=== PATIENT | female | born 1985 | race Caucasian/White ===

== ENCOUNTER 2021-07-14 11:27 | Outpatient (RCR) | payer OTHER, SELFPAY ==
[2021-07-14 12:25] VITALS: BP 110/75; PULSE 70
== END 2021-08-10 10:06 | disposition home or self-care (01) ==
LOC: ANHOBOP 11:27
PROVIDERS: PCP Family Medicine; Visit Provider Obstetrics & Gynecology
DX: O36.5930 Maternal care for other known or suspected poor fetal growth, third trimester, not applicable or unspecified (principal); Z3A.37 37 weeks gestation of pregnancy
CPT/HCPCS: 59025

== ENCOUNTER 2021-07-28 06:01 | Inpatient (IN) | payer OTHER, SELFPAY ==
[2021-07-28] VITALS (91 sets, daily range): BP systolic 98–130; BP diastolic 54–94; PULSE 57–105; RESP 16–18; TEMP 36.4–36.8; O2SAT 98–100; BMI 32.7
--- NOTE | 2021-07-28 06:01 | LDADM ---
This patient, Masha Manning, was admitted to Labor/Delivery/Recovery 107 on 07/28/21 at 06:01. Plans for labor, pain management and were discussed with patient. Patient/family oriented to hospital policies and general routines including ID bracelet, bed and alarms, visiting hours, pain management, procedures, bathroom and other care routines, personal items, smoking policy, room service/diet and guest tray routines, infant security routines, and visiting hours. Patient/Family are encouraged to report perceived risks to care and to ask questions if they do not understand what they are told or what they should do. See OBIX for further documentation.
[2021-07-28] MEDS: LACTATED RINGERS 1,000 ML 125 ML IV CONT ×2 (06:58→10:13)
[2021-07-28] MEDS: AMPICILLIN 2 GM/NS 100 ML 2 GM/100 ML BAG IVPB (06:58)
[2021-07-28] MEDS: OXYTOCIN 30 UNITS/NS 500 ML 30 UNITS/500 ML BAG IV CONT (06:58)
[2021-07-28 07:06] LABS: Basophils Percent Auto 0.4 % (0.2-1.2); Eosinophils Absolute Auto 0.1 K/mm3 (0-0.3); Eosinophils Percent Auto 0.9 % (0-4.4); Hematocrit 40.3 % (37.0-47.0); Hemoglobin 14.2 g/dL (12.0-15.0); Immature Granulocyte Absolute 0.07 K/mm3 (0.00-0.031); Immature Granulocyte Percent A 0.8 % (0-0.5); Lymphocytes Absolute Auto 1.66 K/mm3 (0.9-3.2); Lymphocytes Percent Auto 19.6 % (18.3-44.2); Mean Corpuscular HGB Conc 35.2 g/dl (32-36); Mean Corpuscular Hemoglobin 32.9 pg (26-34); Mean Corpuscular Volume 93.3 fl (80-100); Mean Platelet Volume 11.7 fl (7.4-10.4); Monocytes Absolute Auto 0.7 K/mm3 (0.1-0.6); Monocytes Percent Auto 7.8 % (2.6-8.5); Neutrophils Percent Auto 70.5 % (45.5-73.1); Platelet Count Result 212 k/mm3 (150-375); Red Blood Count 4.32 M/mm3 (4.2-5.4); White Blood Count 8.5 K/mm3 (4.5-10.0)
--- NOTE | 2021-07-28 08:40 | WPDOBADMIT ---
Obstetrics - Admit Note Admission Note: record reviewed. Additions to the history and/or subsequent changes in the physical findings follow. 35 y/o at 39 6/7 weeks here for induction of labor. GBS pos. AVSS NST reactive TOCO: irregular contractions ABD soft, nontender, gravid, vertex EXT nontender Cervix 2-3/50/-2. AROM with clear fluid. Vertex. A: IUP at 39 6/7 weeks here for induction of labor. GBS pos. P: Ampicillin. Oxytocin. Anticipate .
--- NOTE | 2021-07-28 10:14 | WPDANESEPPF ---
Anes - Initial Pre Proc Eval Procedure: labor epidural Date/Time: 07/28/21 10:14 Surgeon: Priyank Meehan MD Pre Op Diagnosis: labor pain Pre Op Diagnosis: iol Patient Data Age: 35 Gender: F Height: 1.52 m Weight: 76 kg Last Vital Signs Temp 36.7 C 07/28/21 09:00 Pulse 72 07/28/21 10:13 Resp 16 07/28/21 06:25 BP 115/78 07/28/21 10:13 Pulse Ox 100 07/28/21 10:12 Allergies Allergy/AdvReac Type Severity Reaction Status Date / Time bee venom protein (honey bee) Allergy Unknown Swelling Verified 10/05/19 22:12 Home Medications Medication Instructions Recorded Confirmed Type 1 tablet PO DAILY 07/28/21 07/28/21 History Laboratory Tests 07/28/21 07/28/21 07/28/21 06:34 06:34 06:34 WBC 8.5 K/mm3 K/mm3 (4.5-10.0) RBC 4.32 M/mm3 M/mm3 (4.2-5.4) Hgb 14.2 g/dL g/dL (12.0-15.0) Hct 40.3 % % (37.0-47.0) MCV 93.3 fl fl (80-100) MCH 32.9 pg pg (26-34) MCHC 35.2 g/dl g/dl (32-36) RDW 12.0 % % (11.5-14.5) Plt Count 212 k/mm3 k/mm3 (150-375) MPV 11.7 fl H fl (7.4-10.4) Immature Gran % (Auto) 0.8 % H % (0-0.5) Neut % (Auto) 70.5 % % (45.5-73.1) Lymph % (Auto) 19.6 % % (18.3-44.2) [place] % (Auto) 7.8 % % (2.6-8.5) Eos % (Auto) 0.9 % % (0-4.4) Baso % (Auto) 0.4 % % (0.2-1.2) Lymph # (Auto) 1.66 K/mm3 K/mm3 (0.9-3.2) [place] # (Auto) 0.7 K/mm3 H K/mm3 (0.1-0.6) Eos # (Auto) 0.1 K/mm3 K/mm3 (0-0.3) Baso # (Auto) 0.0 K/mm3 K/mm3 (0.0-0.1) Abs Immat Gran (auto) 0.07 K/mm3 H K/mm3 (0.00-0.031) Absolute Neuts (auto) 6.0 K/mm3 K/mm3 (1.3-6.7) Absolute Nucleated RBC 0.0 K/mm3 K/mm3 (0.0-0.012) Nucleated RBC % 0.0 % % (0.0-0.2) RPR Pending Blood Type O Positive Antibody Screen Negative Patient hx anesthesia problems: none Family hx anesthesia problems: none [facility] [place] Past Medical History Medical History (Updated 10/07/19 @ 00:00 by Hemal Flores) No pertinent past medical history Family History Family History (Updated 06/28/21 @ 15:34 by Vargas Zurita RN) Sibling Crohn disease Social History Social History Smoking status: Never smoker Substance use: never Gender identity (if verbalized by the patient): Female Spiritual care concerns: No Anes - Eval Final PreProcedure Day of Procedure 07/28/21 10:14 Patient weight: obese ASA classification: II Anesthesia type and monitoring: regional epidural and standard monitoring Informed Consent: The patient's anesthetic plan and its attendant risks and benefits were discussed with the patient/family/POA. Questions were solicited and answers provided to the satisfaction of the patient/family/POA.
[2021-07-28] MEDS: AMPICILLIN 1 GM/NS 50 ML 1 GM/50 ML BAG IVPB (10:50)
--- NOTE | 2021-07-28 13:16 | P.PCNOB_ITS ---
OB - Delivery Note Procedure Delivery date: 07/28/21 Procedure: Induction of labor with Induction method: AROM and per pitocin protocol Delivery monitor: external FHT, external uterine and internal uterine Route of delivery: Laceration Description: Periurethral (bilateral) and Perineal - 1st Degree Delivery repair: vicryl (3-0) Specimen: Yes (cord blood) Quantitative Blood Loss (ml): 65 Anesthesia type: Epidural Disposition: PACU Complications: None Narrative: 35 y/o at 39 6/7 weeks gestation who presented to the hospital for induction of labor. Oxytocin was administered intravenously. She received ampicillin for GBS colonization. Amniotomy was performed with return of clear fluid. She received an epidural for pain control. Her labor progressed and her cervix dilated completely. She pushed with good effort and delivered the infant's head to the perineum, followed by the body. The nose and mouth were bulb suctioned. After a delay, the cord was clamped and cut. The was handed off the field. Cord blood was collected. The placenta delivered spontaneously and was grossly normal in appearance. The usual 3 vessel cord was noted. A fist degree midline perineal laceration and bilateral periurethral lacerations were sustained. These were reapproximated using 3 0 Vicryl in interrupted [id number] fashion. Excellent hemostasis resulted as did excellent reapproximation of the normal anatomy. Needle and instrument counts were correct. The patient was taken to recovery room in stable condition. The went to the nursery in stable condition. I was present and scrubbed for the entire delivery. [place] Baby Date of : 07/28/21 Time of : 12:55 Weeks of gestation at delivery: 39 gender: Male Weight (pounds): 6 presentation: vertex position: Left Occiput Anterior Placenta delivery description: Spontaneous and Normal Configuration cord vessel description: 3 Vessels and Delayed Cord Clamping score one minute: 8 score five minutes: 9
--- NOTE | 2021-07-28 13:18 | PM.OBDSVD ---
DS: Admitting Diagnosis Admitting Diagnosis IUP at 39 6/7 weeks GBS colonization DS: Discharge Diagnosis Discharge Diagnosis (1) (normal spontaneous vaginal delivery): Code(s): O80 - Encounter for full-term uncomplicated delivery Status: Acute (2) GBS (group B Streptococcus carrier), +RV culture, currently : Code(s): O99.820 - Streptococcus B carrier state complicating Status: Acute OB - DS: Summary OB Procedures : None OB Procedures Intrapartum: Spontaneous Vag Delivery OB Procedures: : None Time Spent with Patient Time attestation: Total time spent providing and/or coordinating discharge services: DS: Data Data Completed and Pending Labs on day of discharge: Labs from last 24 hours 07/28/21 07/28/21 07/28/21 06:34 06:34 06:34 WBC 8.5 RBC 4.32 Hgb 14.2 Hct 40.3 MCV 93.3 MCH 32.9 MCHC 35.2 RDW 12.0 Plt Count 212 MPV 11.7 H Immature Gran % (Auto) 0.8 H Neut % (Auto) 70.5 Lymph % (Auto) 19.6 [place] % (Auto) 7.8 Eos % (Auto) 0.9 Baso % (Auto) 0.4 Lymph # (Auto) 1.66 [place] # (Auto) 0.7 H Eos # (Auto) 0.1 Baso # (Auto) 0.0 Abs Immat Gran (auto) 0.07 H Absolute Neuts (auto) 6.0 Absolute Nucleated RBC 0.0 Nucleated RBC % 0.0 RPR Pending Blood Type O Positive Antibody Screen Negative Discharge Plan Discharge Attending physician on discharge: Priyank Meehan Consulting providers: Alvarez Rondon Discharging Clinician: Priyank Meehan Patient Disposition: Home, Self-Care Activity: pelvic rest Diet: regular Discharge Instructions: Education: Mom and Baby Guide Given to: Mother Follow-Up: Call your delivering provider's office for an appointment to be seen in: 6 Weeks Mom and baby should come to the [facility] for the follow-up appointment. Appointment Date/Time: August 02, 2021 at 11:00 am What to expect at your follow-up visit: Blood Pressure Check Physical Assessment Call [phone] if you are unable to keep your appointment time. BREAST CARE: * Wear a snug supportive bra. * For engorgement discomfort: Breast Feeding: * Apply warm moist washcloths * Express milk as needed to relieve engorgement * Wear loose clothing * For sore nipples: * Identify correct latch-on * Apply warm moist washcloths before and after nursing * Air dry nipples after nursing * May apply Lansinoh cream to nipples EPISIOTOMY/PERINEAL CARE: * Until bleeding stops, use your nataly bottle after urinating * Change your pad frequently throughout the day * You may take sitz baths several times a day (fill your bathtub with warm water and soak for 20 minutes.) Do NOT bathe in the water * No tub baths until seen by your physician - You may shower ACTIVITY: * Rest as much as possible. * Do not exercise or lift anything heavier than your baby (such as laundry or other children.) * Avoid stairs or driving as much as possible. * Do not put anything into the vagina. No douching, tampons, or sexual activity until seen by physician. NOTIFY PHYSICIAN IF YOU HAVE ANY QUESTIONS OR IF ANY OF THE FOLLOWING SYMPTOMS OCCUR: * If your perineum becomes red, swollen, or more painful than what you have experienced in the hospital. * If your vaginal bleeding becomes foul smelling. * If your vaginal bleeding becomes more heavy than a period or if your bleeding changes from pink to bright red. However, you may pass an occasional walnut-sized clot once or twice for the first week . * If you experience a sharp, shooting pain in you calves. * If you discover a hard, reddened area on your breast or if you experience flu-like symptoms. *Temperature of 100.4 or higher DIET: * Eat regular, well-balanced meals. * Drink plenty of fluids daily. If ,
[2021-07-28] MEDS: OXYTOCIN 30 UNITS/NS 500 ML 30 UNITS/500 ML BAG 125 UNITS IV CONT (13:31)
--- NOTE | 2021-07-28 16:00 | PC.NURSE ---
Patient transferred to post room # 279 per wheelchair. Support person present. Oriented to unit, room, information board, rooming in, admission packet and security measures. Patient verbalizes understanding.
[2021-07-28] MEDS: IBUPROFEN 600 MG TABLET PO ×2 (16:30→22:42)
[2021-07-28] MEDS: BENZOCAINE 20% AER SPR (*SP) 56 GM CAN 1 SPRAY TOPICAL (17:00)
[2021-07-28] MEDS: DOCUSATE SODIUM 100 MG CAPSULE PO (17:00)
[2021-07-28] MEDS: LANOLIN (LANSINOH) 7.5 GM CREAM 1 APPLIC TOPICAL (17:00)
[2021-07-28] MEDS: WITCH HAZEL 40 PADS 1 PAD TOPICAL (17:00)
[2021-07-29 04:30] VITALS: BP 116/80; PULSE 72; RESP 18; TEMP 36.8; O2SAT 98
[2021-07-29 05:20] LABS: Hematocrit 36.8 % (37.0-47.0); Hemoglobin 12.9 g/dL (12.0-15.0)
[2021-07-29 08:00] VITALS: BP 132/64; PULSE 64; RESP 18; TEMP 36.5
[2021-07-29] MEDS: DOCUSATE SODIUM 100 MG CAPSULE PO ×2 (09:11→16:09)
[2021-07-29] MEDS: IBUPROFEN 600 MG TABLET PO ×2 (09:11→16:09)
[2021-07-29] MEDS: MULTIVIT/MIN/PREN/FOL AC/IRON TABLET 1 TAB PO (09:11)
--- NOTE | 2021-07-29 09:26 | PM.OBPNVD ---
OB - PN: Subj Subjective Date/time seen: 07/29/21 09:26 Narrative: Pain OK. Would like circumcision for son. OB - PN: Obj Data Labs CBC & Chem 7: 07/29/21 04:30 Labs: Laboratory Results - last 24 hr 07/29/21 04:30 Hgb 12.9 Hct 36.8 L OB - PN A/P Plan Comments: A: PPD#1, doing well. P: Routine care. Exam Psych: Other: AVSS ABD soft, nontender, fundus firm EXT nontender
--- NOTE | 2021-07-29 09:36 | PC.NURSE ---
Consulted with patient, reviewed feeding cues, frequencies, duration of feedings, feeding elimination flow sheet, and signs of adequate intake. Demonstrated stimulation techniques to keep awake for feeding. Mother has at breast feeding. Reviewed positioning/alignment, holding breast and asymmetrical latch on. was latched correctly. nursing eagerly, with steady draws and frequent swallowing noted. was able to maintain latch with minimal discomfort to mother. Mom states that the right side has some tenderness no blisters or cracks. Reviewed signs of a correct latch, effective nursing and suck swallow ratio. Nipple care reviewed. Instructed mother to call out for RN assistance if she is unable to latch infant for feeding or she has discomfort with nursing. Instructed feeding should be initiated three hours from start of last feeding or if feeding cues are noted before. Mother voiced understanding of information shared.
[2021-07-29 09:47] LABS: Rapid Plasma Reagin Non-Reactive (NonReactive)
--- NOTE | 2021-07-29 10:56 | WPDANLDPN2 ---
Anes-Prog Note L&D Date/Time: 07/29/21 10:56 Comfortable throughout: labor and delivery Neuraxial method: epidural Epidural/Spinal procedure site: clean & non-tender Neuro status: Neuro function grossly intact. Cardiovascular status: normal Respiratory status: normal Airway patency: baseline Mental status: baseline Post-Op hydration status: normal Vital Signs: Last Vital Signs Temp 36.5 C 07/29/21 08:00 Pulse 64 07/29/21 08:00 Resp 18 07/29/21 08:00 BP 132/64 07/29/21 08:00 Pulse Ox 98 07/29/21 04:30 Pain score (VAS): no c/o pain Post-procedural complaints: none Patient feedback: Patient satisfied with anesthetic care.
[2021-07-29 12:00] VITALS: BP 106/69; PULSE 88; RESP 18; TEMP 36.8
[2021-07-29 13:05] VITALS: BP 119/76; PULSE 88; RESP 18; TEMP 36.6; O2SAT 98
[2021-07-29 20:00] VITALS: BP 114/75; PULSE 80; RESP 18; TEMP 36.4; O2SAT 98
--- NOTE | 2021-07-30 09:07 | PM.OBDSVD ---
DS: Admitting Diagnosis Admitting Diagnosis intrauterine at term OB - DS: Summary OB Procedures : None OB Procedures Intrapartum: Spontaneous Vag Delivery OB Procedures: : None Time Spent with Patient Time attestation: Total time spent providing and/or coordinating discharge services: DS: Data Data Completed and Pending Labs on day of discharge: Labs from last 24 hours 07/28/21 06:34 RPR Non-reactive Discharge Plan Discharge Attending physician on discharge: Priyank Meehan Discharging Clinician: Priyank Meehan Patient Disposition: Home, Self-Care Activity: pelvic rest Diet: regular Discharge Instructions: Call or return if temperature above 100.4? F, increased abdominal pain, increased vaginal bleeding or any new problems. Stand Alone Forms: General Discharge Information Follow-up/Referrals: Priyank Meehan MD [Physician] - 6 Weeks Discharge Medications: New ibuprofen 600 mg tablet 600 mg PO Q6H PRN (Reason: cramps) Qty: 30 RF: 0 No Action 1 tablet PO DAILY RF: 0 Date of admission: 07/28/21 06:01 Primary Care Provider: Madina Velásquez Admitting Provider: Priyank Meehan Attending physician on admission: Priyank Meehan Condition: Stable
[2021-07-30 10:45] VITALS: BP 117/73; PULSE 92; RESP 18; TEMP 36.5; O2SAT 98
[2021-07-30] MEDS: DOCUSATE SODIUM 100 MG CAPSULE PO (10:45)
[2021-07-30] MEDS: MULTIVIT/MIN/PREN/FOL AC/IRON TABLET 1 TAB PO (10:45)
[2021-07-30] MEDS: IBUPROFEN 600 MG TABLET PO (10:45)
[2021-08-02 10:53] VITALS: BP 121/77; PULSE 78; RESP 20; TEMP 37; O2SAT 98
== END 2021-07-30 13:55 | disposition home or self-care (01) | DRG 807 ==
LOC: ANHLDR 13:20 → ANHOB2 07-30 12:26 → ANHLDR 08-03 06:58 → ANHOB2 08-03 06:58
PROVIDERS: Admitting Provider Obstetrics & Gynecology; PCP Family Medicine; Visit Provider Student in an Organized Health Care Education/Training Program
DX: O99.824 Streptococcus B carrier state complicating childbirth (principal); Z37.0 Single live birth; O71.82 Other specified trauma to perineum and vulva; O70.0 First degree perineal laceration during delivery; O76 Abnormality in fetal heart rate and rhythm complicating labor and delivery; Z3A.39 39 weeks gestation of pregnancy
CPT/HCPCS: 36415; 85014; 85018; 85025; 86592; 86850; 86900; 86901; A9270; J0290; J2590; J2795; J7120

== ENCOUNTER 2024-09-04 21:07 | Emergency (ER) | payer BC, SELFPAY ==
--- NOTE | ~2024-09-04 | XR_ITS ---
HISTORY: fall, pain COMPARISON: None TECHNIQUE: 3 views left ankle were performed. FINDINGS: No acute or subacute fracture, erosion, lytic or sclerotic lesion. Joint spaces are preserved and alignment is normal. Soft tissues are unremarkable without foreign body or significant calcification. Normal mineralization. IMPRESSION: No acute or subacute fracture, as detailed above Reviewed, dictated and finalized at location A.
[2024-09-04 21:16] VITALS: BP 123/56; PULSE 69; RESP 16; TEMP 35.8; O2SAT 100
--- NOTE | 2024-09-04 22:46 | ED.LOWEXIN ---
HPI - Extremity Injury (Lower) General Chief Complaint: Extremity Injury, Lower Stated Complaint: ankle pain Time Seen by Provider: 09/04/24 22:39 History of Present Illness HPI Narrative: 39-year-old otherwise healthy female presenting to the emergency department for evaluation of a left ankle injury. She had an inversion type injury during a sliding position while playing kickball earlier today. She was not able to bear weight heard a popping sensation. Pain is mostly localized to the lateral aspect of the lateral malleolus and does not involve the midfoot or forefoot. She is able to plantar and dorsiflex and invert and dayna the ankle a bit with some pain. Was not able to bear weight and ambulate and required assistance getting to the ER. No ecchymoses or significant swelling. Denies any other injuries. Was otherwise in her normal state of health, did not take any medications prior to arrival. Related Data Home Medications Medication Instructions Recorded Confirmed multivitamin with minerals 1 tablet PO DAILY 01/23/24 06/25/24 (Hair,Skin and Nails tablet) Allergies Allergy/AdvReac Type Severity Reaction Status Date / Time seasonal alleriges Allergy Mild Headache Uncoded 06/25/24 09:56 Review of Systems Review of Systems: As reviewed above All systems reviewed & are unremarkable except as noted in HPI and below PMFSH Past Medical History Medical History (Updated 09/04/24 @ 23:08 by Leighton Zayas MD) No pertinent past medical history Family History Family History Sibling Crohn disease Father Hypertension Mother Hypertension Grandparent Diabetes mellitus Social History Social History Social History: caffeine - coffee 8 ounces Smoking status: Never smoker Second hand tobacco smoke exposure: No Substance use: never Do You Feel Safe in your Home?: Yes Lack of Transportation: No Lack of Food: Never True Current Housing: I Have Housing Concerned About Future Housing: No Difficulty Paying Gas/Electric Bills: No Difficulty Paying for Meds: No Currently Unemployed: No Education: Master's Degree or Higher Difficulty w/ Childcare or Family Care: No Living arrangements: with family Occupation/Education: occupation Gender identity (if verbalized by the patient): Female Sexual Orientation (if Verbalized by the Patient): Straight or Heterosexual Spiritual care concerns: No Agree to blood products: No Exam Narrative: GENERAL: [Well-appearing, well-nourished, and in no acute distress.] HEAD: [Normocephalic, atraumatic.] EYES: [PERRLA and EOMI.] ENT: Nares clear, no rhinorrhea or epistaxis. Mucous membranes moist. NECK: Supple. CHEST: [Clear to auscultation. No respiratory distress.] HEART: [Regular rate and rhythm]. No murmur heard. [Normal peripheral pulses.] ABDOMEN: [Soft, nondistended], [nontender], [No rigidity or guarding] EXTREMITIES: There is focal tenderness to palpation over the ligamentous region of the lateral malleolus, does not cross into the midfoot or forefoot. No ecchymoses in the plantar surface. Able to plantar and dorsiflex and invert, dayna the ankle with some mild pain. Full strength and sensation throughout. No posterior tibial or fibular ridge tenderness and there are no obvious step-offs deformities or skin contusions breakdown or bruising. SKIN: Warm, dry, no rash. NEURO: [No focal deficits]. Alert and oriented [x3.] PSYCH: [Normal mood and affect.] Course Vital Signs Vital signs: Vital Signs Temperature 35.8 C L 09/04/24 21:16 Pulse Rate 69 09/04/24 21:16 Respiratory Rate 16 09/04/24 21:16 Blood Pressure 123/56 L 09/04/24 21:16 Pulse Oximetry 100 09/04/24 21:16 Oxygen Delivery Room Air 09/04/24 21:16 Temperature 35.8 C L 09/04/24 21:16 Pulse Rate 6
[2024-09-04] MEDS: ACETAMINOPHEN 500 MG TABLET 1000 MG PO (23:41)
[2024-09-04] MEDS: KETOROLAC 10 MG TABLET PO (23:42)
== END 2024-09-05 00:02 | disposition home or self-care (01) ==
LOC: ANHED 23:09
PROVIDERS: Emergency Provider Student in an Organized Health Care Education/Training Program; PCP Emergency Medicine
DX: S93.402A Sprain of unspecified ligament of left ankle, initial encounter (principal); S96.912A Strain of unspecified muscle and tendon at ankle and foot level, left foot, initial encounter; X50.9XXA Other and unspecified overexertion or strenuous movements or postures, initial encounter; Y93.6A Activity, physical games generally associated with school recess, summer camp and children
CPT/HCPCS: 73610; 99283; A9270

== ENCOUNTER 2024-09-23 15:41 | Outpatient (CLI) | payer BC, SELFPAY ==
--- NOTE | ~2024-09-23 | MR_ITS ---
MRI of the left ankle Clinical history: Pain Technique: Coronal proton-density and proton-density fat-sat images, axial proton-density and proton- density fat-sat images, and sagittal proton-density and proton-density fat-sat images were acquired. Findings: Syndesmotic ligaments are intact. There is probable acute tear of the anterior talofibular ligament. Posterior talofibular ligament intact. Probable sprain versus acute tear of the calcaneofib ular ligament. Deltoid ligament is intact. Medial flexor tendons, peroneal tendons, anterior extensor tendons, and Achilles tendon are intact. T here is mild tenosynovitis of the tibialis posterior tendon sheath and flexor digitorum longus tendon sheaths. There is no osteochondral lesion of the talar dome. Bone marrow signals and joint spaces are intact. Small tibiotalar joint effusion present. Plantar fascia intact. There is lateral subcutaneous soft ti ssue edema about the ankle. Impression: Probable acute tear of the anterior talofibular ligament. Additional acute sprain versus tear of the calcaneofibular ligament. Mild tenosynovitis of the tibialis posterior and flexor digitorum longus tendon sheaths. Reviewed, dictated and finalized at location . Impression: Probable acute tear of the anterior talofibular ligament. Additional acute spra in versus tear of the calcaneofibular ligament. Mild tenosynovitis of the tibialis posterior and flexor digitorum longus tendon sheaths.
== END 2024-09-23 15:42 | disposition home or self-care (01) ==
LOC: GOSHIMG 15:41
PROVIDERS: PCP Nurse Practitioner Family; Visit Provider Nurse Practitioner Family
DX: M76.822 Posterior tibial tendinitis, left leg (principal); M65.012 Abscess of tendon sheath, left shoulder; S93.409A Sprain of unspecified ligament of unspecified ankle, initial encounter; S96.919A Strain of unspecified muscle and tendon at ankle and foot level, unspecified foot, initial encounter
CPT/HCPCS: 73721

== ENCOUNTER 2025-06-03 08:17 | Outpatient (CLI) | payer BC, SELFPAY ==
--- NOTE | ~2025-06-03 | MR_ITS ---
MRI of the left ankle Clinical history: Pain Technique: Coronal proton-density and proton-density fat-sat images, axial proton-density and proton- density fat-sat images, and sagittal proton-density and proton-density fat-sat images were acquired. COMPARISON: 09/23/2024 Findings: Syndesmotic ligaments are intact. Anterior and posterior talofibular ligaments, and calcane ofibular ligament are intact, with thickening of the anterior talofibular ligament. Deltoid ligament intact. Medial flexor tendons, peroneal tendons, anterior extensor tendons, and Achilles tendon are intact. There is no osteochondral lesion of the talar dome. Bone marrow signals and joint spaces are intact. Small tibiotalar joint effusion present. Plantar fascia intact. No soft tissue mass or fluid collection. Normal signal preserved in the sinus Tarsi. Impression: Small tibiotalar joint effusion. No other acute abnormality. Thickening of the anterior talofibular ligament, likely reflecting sequela of prior injury. Reviewed, dictated and finalized at location . Impression: Small tibiotalar joint effusion. No other acute abnormality. Thickening of the anterior talofibular ligament, likely reflecting sequela of p rior injury.
== END 2025-06-03 08:18 | disposition home or self-care (01) ==
LOC: GOSHIMG 08:18
PROVIDERS: PCP Orthopaedic Surgery; Visit Provider Orthopaedic Surgery
DX: M25.472 Effusion, left ankle (principal); X58.XXXA Exposure to other specified factors, initial encounter; S93.402A Sprain of unspecified ligament of left ankle, initial encounter
CPT/HCPCS: 73721